=== PATIENT | female | born 1965 | race Caucasian/White ===

== ENCOUNTER 2017-12-03 08:10 | Emergency (ER) | payer SELFPAY ==
[~2017-12-03] VITALS: Ht 157.5 cm; Wt 70.8 kg
--- NOTE | 2017-12-03 08:12 | NUR ---
PT BIBA TO BED 4
[2017-12-03 08:17] VITALS: BP 154/58
--- NOTE | 2017-12-03 08:20 | NUR ---
52/F BIBA FROM HOME FOR NUMBNESS/TINGLING TO FINGERS AND DIZZINESS THIS AM. PT STS R/T FAMILY ISSUES. DENIES CHEST PAIN, DENIES SOB. PT STS ARGUMENT WITH . BS FIELD 116. HX: ANXIETY, C- SECTION. DENIES TAKING ANY MEDS.
--- NOTE | 2017-12-03 08:45 | NUR ---
Patient being evaluated by physician at bedside.
[2017-12-03] MEDS ORDERED: LORazepam 2 MG/ML VIAL IM ONE (09:05)
[2017-12-03] MEDS ORDERED: hydrOXYzine HCL 25 MG TAB PO PRN (09:05)
--- NOTE | 2017-12-03 09:10 | NUR ---
ESCORTED PT TO RESTROOM.
--- NOTE | 2017-12-03 10:26 | NUR ---
PT TAKEN TO XRAY.
[2017-12-03 10:46] LABS: HEMATOCRIT 43.9 % (36-48); HEMOGLOBIN 14.6 g/dL (12.0-16.0); MEAN CORPUSCULAR HEMOGLOBIN 28 pg (27-31); MEAN CORPUSCULAR HGB CONC 33 g/dL (33-37); MEAN CORPUSCULAR VOLUME 85 fL (80-94); PLATELET COUNT (AUTO) 277 K/uL (140-450); RED BLOOD CELL COUNT(AUTO) 5.19 MIL/uL (4.20-5.40); RED CELL DISTRIBUTION WIDTH 12.2 % (11.6-13.7); WHITE BLOOD COUNT (AUTO) 5.9 K/uL (4.8-10.8)
[2017-12-03 10:53] LABS: ANION GAP 13.2 (8-16); CARBON DIOXIDE 27.9 mmol/L (21-32); CREATININE 0.7 mg/dL (0.6-1.3); POTASSIUM 4.1 mmol/L (3.5-5.1)
[2017-12-03 10:58] LABS: ALBUMIN 3.7 g/dL (3.4-5.0); TOTAL BILIRUBIN 0.3 mg/dL (0.0-1.0)
[2017-12-03 11:10] LABS: PROTHROMBIN TIME 10.8 secs (10.8-13.4)
[2017-12-03 11:13] LABS: LYMPHOCYTES % (MANUAL) 24 % (20-46); MONOCYTES % (MANUAL) 6 % (5-12)
--- NOTE | 2017-12-03 14:51 | NUR ---
Patient discharged with v/s stable. Written and verbal after care instructions given and explained. Patient alert, oriented and verbalized understanding of instructions. Ambulatory with steady gait.BUS PASS GIVEN. All questions addressed prior to discharge. ID band removed. Patient advised to follow up with PMD. Rx of VISTERIL given. Patient educated on indication of medication including possible reaction and side effects. Opportunity to ask questions provided and answered.
[2017-12-03 14:52] VITALS: BP 116/37
== END 2017-12-03 14:51 | disposition home or self-care (01) ==
LOC: MED 08:10
DX: F41.0 Panic disorder [episodic paroxysmal anxiety] (principal); R03.0 Elevated blood-pressure reading, without diagnosis of hypertension
CPT/HCPCS: 36415; 71045; 80053; 82948; 83880; 84484; 85025; 85610; 85730; 93005; 96372; 99285; J2060

== ENCOUNTER 2018-05-09 18:28 | Emergency (ER) | payer SELFPAY ==
[~2018-05-09] VITALS: Ht 149.9 cm; Wt 73.7 kg
[2018-05-09 19:01] VITALS: BP 140/96
[2018-05-09] MEDS ORDERED: ALUMINUM HYD/MAG/SIMETHICONE 30 ML, DICYCLOMINE HCL LIQUID 20 MG, LIDOCAINE VISCOUS 2% ... PO ONE ×3 (20:45)
[2018-05-09 21:32] VITALS: BP 131/74
== END 2018-05-09 21:34 | disposition home or self-care (01) ==
LOC: MED 18:28
DX: K29.70 Gastritis, unspecified, without bleeding (principal); F41.9 Anxiety disorder, unspecified; F32.9 Major depressive disorder, single episode, unspecified
CPT/HCPCS: 81002; 81025; 99283

== ENCOUNTER 2019-06-14 10:32 | Emergency (ER) | payer SELFPAY ==
[~2019-06-14] VITALS: Ht 160 cm; Wt 72.1 kg
[2019-06-14 11:01] VITALS: BP 165/97
[2019-06-14] MEDS ORDERED: NACL 0.9% 1,000 ML IV ONE (11:50)
[2019-06-14] MEDS ORDERED: MECLIZINE 25 MG TAB PO ONE (11:50)
[2019-06-14 12:12] LABS: BASOPHILS # (AUTO) 0.1 K/uL (0.00-0.22); BASOPHILS % (AUTO) 1.1 % (0.0-2.0); EOSINOPHILS # (AUTO) 0.1 K/uL (0-0.4); EOSINOPHILS % (AUTO) 1.5 % (0.0-4.0); HEMATOCRIT 41.8 % (36-48); HEMOGLOBIN 14.2 g/dL (12.0-16.0); LYMPHOCYTES % (AUTO) 19.9 % (20.5-51.1); MEAN CORPUSCULAR HEMOGLOBIN 29 pg (27-31); MEAN CORPUSCULAR HGB CONC 34 g/dL (33-37); MEAN CORPUSCULAR VOLUME 85.2 fL (80-94); MONOCYTES # (AUTO) 0.3 K/uL (0.8-1.0); MONOCYTES % (AUTO) 6.4 % (1.7-9.3); NEUTROPHILS # (AUTO) 3.6 K/uL (1.8-7.7); NEUTROPHILS % (AUTO) 71.1 % (42.2-75.2); PLATELET COUNT (AUTO) 229 K/uL (140-450); RED BLOOD CELL COUNT(AUTO) 4.91 MIL/uL (4.20-5.40); RED CELL DISTRIBUTION WIDTH 13.5 % (11.6-13.7)
[2019-06-14 12:30] LABS: ANION GAP 15.2 (8-16); CARBON DIOXIDE 25.6 mmol/L (21-32); CREATININE 0.8 mg/dL (0.6-1.3); POTASSIUM 3.8 mmol/L (3.5-5.1); TOTAL BILIRUBIN 0.6 mg/dL (0.0-1.0)
[2019-06-14] MEDS ORDERED: LORazepam 1 MG TAB PO ONE (13:15)
[2019-06-14 13:51] VITALS: BP 129/78
== END 2019-06-14 13:51 | disposition home or self-care (01) ==
LOC: MED 10:32
DX: F41.9 Anxiety disorder, unspecified (principal); R42 Dizziness and giddiness; H53.2 Diplopia
CPT/HCPCS: 36415; 80053; 81002; 81025; 84484; 85025; 93005; 96360; 96361; 99284; J7030; J8597